=== PATIENT | male | born 1950 | race Caucasian/White ===

== ENCOUNTER 2020-11-28 09:56 | Emergency (ER) | payer OTHER, SELFPAY ==
[2020-11-28] VITALS (11 sets, daily range): BP systolic 112–147; BP diastolic 65–76; PULSE 46–54; RESP 14–18; TEMP 36.6; O2SAT 91–98; BMI 27.6
--- NOTE | 2020-11-28 | DI.MRI.S_ITS ---
PROCEDURE: MR ANGIO HEAD WO CON INDICATIONS: CVA, DIZZY TECHNIQUE: Noncontrast axial 3-D [id number] MR angiogram, with 3-dimensional maximum intensity projection (MIP) reformats of the internal carotid arteries and posterior circulation then performed. COMPARISON: [facility], , MR HEAD/BRAIN WO CON, 11/28/2020, 13:32. FINDINGS: Image quality: Excellent. Anterior circulation: Intracranial internal carotid arteries demonstrate normal size and intraluminal flow signal. The flow within the paired anterior cerebral arteries is normal and symmetric. The flow within the middle cerebral arteries is normal and symmetric. The anterior communicating artery is seen. No stenoses, occlusions, or aneurysms. Posterior circulation: Visualized portions of the vertebral arteries demonstrate normal caliber, and join to form a normal appearing basilar artery. The flow within the posterior cerebral arteries is normal and symmetric. No stenoses, occlusions, or aneurysms. IMPRESSION: No significant intracranial arterial abnormality is seen. Dictated by: Tacho Valencia M.D. on 11/28/2020 at 13:16 Approved by: Tacho Valencia M.D. on 11/28/2020 at 13:17
--- NOTE | 2020-11-28 10:09 | DI.RAD.S_ITS ---
PROCEDURE: XR CHEST 1V INDICATIONS: chest pain TECHNIQUE: One view of the chest was acquired. COMPARISON: None. FINDINGS: Surgical changes and devices: None. Lungs and pleura: An incomplete inspiratory result is noted, causing a crowded appearance to the lung markings. No focal infiltrates are seen. No pneumothorax or significant pleural effusions are seen. Mediastinum: Mediastinal contours appear normal. Heart size is normal. Bones and chest wall: No suspicious bony lesions. Age-appropriate bony degenerative changes are seen. Overlying soft tissues appear unremarkable. IMPRESSION: Portable chest within normal limits for age. Dictated by: Tacho Valencia M.D. on 11/28/2020 at 9:30 Approved by: Tacho Valencia M.D. on 11/28/2020 at 9:31
[2020-11-28 10:22] LABS: Add Manual Diff / Slide Review NO; Basophils Absolute Auto 0 /uL (0-100); Basophils Percent Auto 0.5 % (0-2); Eosinophils Absolute Auto 200 /uL (0-450); Eosinophils Percent Auto 3.7 % (2-4); Hematocrit 46.2 % (41-53); Hemoglobin 15.5 g/dL (13.5-17.5); Lymphocytes Absolute Auto 1700 /uL (1100-4500); Lymphocytes Percent Auto 35.7 % (25-40); Mean Corpuscular HGB Conc 33.5 % (30-36); Mean Corpuscular Hemoglobin 31.2 PG (26-34); Monocytes Absolute Auto 600 /uL (0-900); Monocytes Percent Auto 12.7 % (3-14); Neutrophils Absolute Auto 2200 /uL (1500-7000); Neutrophils Percent Auto 47.4 % (50-75); Platelet Count 190 X10^3/uL (150-400); Red Blood Cell Count 4.96 X10^6/uL (4.5-5.9); Red Cell Distribution Width 13.6 % (11.6-14.8); White Blood Cell Count 4.8 X10^3/uL (4.5-11.0)
[2020-11-28 10:37] LABS: Alanine Aminotransferase 32 IU/L (<50); Albumin 4.4 g/dL (3.5-5.0); Albumin Globulin Ratio 1.5 (1.0-2.8); Alkaline Phosphatase 55 U/L (38-126); Aspartate Aminotransferase 37 IU/L (17-59); BUN Creatinine Ratio 20.4 (6-22); Bilirubin Total 1.6 mg/dL (0.2-1.3); Blood Urea Nitrogen 21 mg/dL (9-20); Calcium 9.3 mg/dL (8.4-10.2); Carbon Dioxide 26 mmol/L (22-32); Chloride 104 mmol/L (98-107); Creatine Kinase 116 U/L (55-170); Estimated Glomerular Filt Rate > 60.0 mL/min (>60); Glucose 109 mg/dL (80-110); HEMOLYSIS < 15 (0-50); Lipase 48 U/L (23-300); Potassium 4.3 mmol/L (3.4-5.1); Sodium 139 mmol/L (137-145); Total Protein 7.4 g/dL (6.3-8.2)
[2020-11-28 10:49] LABS: Troponin I < 0.012 ng/mL (0.01-0.034)
[2020-11-28 10:53] LABS: CKMB % Relative Index 1.9 % (1.5-5.0); Creatine Kinase MB 2.21 ng/mL (<2.37)
--- NOTE | 2020-11-28 12:12 | ED.GENADULT ---
HPI - General Adult General Chief complaint: Dizziness Stated complaint: Vertigo Time Seen by Provider: 11/28/20 12:09 Source: patient Mode of arrival: Ambulatory Limitations: no limitations History of Present Illness HPI narrative: 69-year-old gentleman with a history of mild hyperlipidemia and BPH who has been having increasing episodes of vertigo over the last 3 days. No fevers, cough, chills, palpitations, chest pain, abdominal pain. He has had some mild nausea but no vomiting, no hematuria dysuria or diarrhea. Does note that symptoms seem to be worse from going from a sitting to a standing position but head positions specifically does not seem to cause any problems. He notes that it is worst when he 1st awakens in the morning seems to improve over the course of the day. He complains of no headaches, no visual disturbances or other visual changes. Related Data Allergies Allergy/AdvReac Type Severity Reaction Status Date / Time medication for skin CA Allergy Uncoded 11/28/20 10:10 Review of Systems Review of Systems Narrative: Remainder of complete review of systems is otherwise unremarkable except for that included in the HPI. Patient History Medical History (Updated 11/28/20 @ 15:32 by Carrie Lassiter MD) BPH (benign prostatic hyperplasia) Hyperlipidemia Social History Smoking Status: Unknown if ever smoked Smoking Status: Unknown if ever smoked alcohol intake frequency: 0-2 drinks per day Substance Use Type: does not use Exam Narrative Exam Narrative: General: Healthy appearing, in no acute distress. Able to give a complete and coherent history. Well-nourished well-developed HEENT: Moist mucous membranes, normal sclera with reactive pupils, Neck: No JVD, supple Respiratory: Lungs are clear to auscultation, no wheezing no rales no rhonchi. Full and symmetrical air movement Cardiac: Regular rate and rhythm no murmurs no bruits Abdomen: Soft, nontender, good bowel tones, no flank pain Skin: Warm and dry, no rashes Neurologic: Grossly neurologically intact with no obvious asymmetries or abnormalities. He has some mild swaying on Romberg testing and needs to recur act slightly to do heel to toe and slightly less stable standing on his left leg unsupported than his right leg unsupported. NIH score is 0 Extremities: No trauma, well perfused Psych: Cooperative, appropriate insight and affect Initial Vital Signs Initial Vital Signs: Vital Signs Temperature 97.9 F 11/28/20 10:05 Pulse Rate 54 L 11/28/20 10:05 Respiratory Rate 14 11/28/20 10:05 Blood Pressure 141/76 H 11/28/20 10:05 Pulse Oximetry 98 11/28/20 10:05 Course Orders Ordered: ED Orders 11/28/20 10:09 XR chest 1V Stat EKG-12 Lead Stat 11/28/20 10:10 Complete Blood Count AUTO DIFF Stat Comprehensive Metabolic Panel Stat Lipase Stat Troponin & CK Cardiac Panel Stat 11/28/20 13:36 MR head/brain wo con Stat Vital Signs Vital signs: Vital Signs - 8 hr 11/28/20 10:05 11/28/20 10:30 11/28/20 11:00 Temperature 97.9 F Pulse Rate 54 L 50 L 49 L Respiratory Rate 14 16 Blood Pressure 141/76 H 121/66 112/67 Pulse Oximetry 98 95 95 11/28/20 11:30 11/28/20 12:00 11/28/20 12:30 Temperature Pulse Rate 48 L 46 L 49 L Respiratory Rate 14 16 18 Blood Pressure 113/71 120/72 121/65 Pulse Oximetry 97 97 95 11/28/20 13:00 11/28/20 14:02 11/28/20 14:05 Temperature Pulse Rate 48 L 52 L Respiratory Rate 16 17 Blood Pressure 147/67 H Pulse Oximetry 97 91 97 11/28/20 14:30 11/28/20 15:00 Temperature Pulse Rate 52 L 54 L Respiratory Rate Blood Pressure 122/72 133/70 Pulse Oximetry 96 95 Medical Decision Making Lab Data Result diagrams: 11/28/20 10:10 11/28/20 10:10 Labs: Lab Results 11/28/20 11/28/20 Range/Units 10:10 10:10 WBC 4.8 (4.5-11.0) X10^3/uL RBC 4.96 (4.5-5.9) X10^6/uL Hgb 15.5 (13.5-17.5) g/dL Hct 46.2 (41-53) % MCV 93.0 (80-100) fL MCH 31.2 (26-34) PG MCHC 33.5 (30-36) % RDW 13.6 (11.6-14.8) % Plt Count 190 (150-400) X10^3/uL Neut % (Auto) 47.4 L (50-75) % Lymph % (Auto) 35.7 (25-40) % [place] % (Auto) 12.7 (3-14) % Eos % (Auto) 3.7 (2-4) % Baso % (Auto) 0.5 (0-2) % Neut # (Auto) 2200 (1368-3298) /uL Lymph # (Auto) 1700 (3560-3159) /uL [place] # (Auto) 600 (0-900) /uL Eos # (Auto) 200 (0-450) /uL Baso # (Auto) 0 (0-100) /uL Sodium 139 (137-145) mmol/L Potassium 4.3 (3.4-5.1) mmol/L Chloride 104 (98-107) mmol/L Carbon Dioxide 26 (22-32) mmol/L BUN 21 H (9-20) mg/dL Creatinine 1.03 (0.66-1.25) mg/dL Estimated GFR > 60.0 (>60) mL/min BUN/Creatinine Ratio 20.4 (6-22) Glucose 109 (80-110) mg/dL Calcium 9.3 (8.4-10.2) mg/dL Total Bilirubin 1.6 H (0.2-1.3) mg/dL AST 37 (17-59) IU/L ALT 32 (<50) IU/L Alkaline Phosphatase 55 (38-126) U/L Total Creatine Kinase 116 (55-170) U/L CK-MB (CK-2) 2.21 (<2.37) ng/mL CK-MB (CK-2) Rel Index 1.9 (1.5-5.0) % Troponin I < 0.012 (0.01-0.034) ng/mL Total Protein 7.4 (6.3-8.2) g/dL Albumin 4.4 (3.5-5.0) g/dL Globulin 3.0 (1.7-4.1) g/dL Albumin/Globulin Ratio 1.5 (1.0-2.8) Lipase 48 (23-300) U/L Imaging Data Chest x-ray: Radiologist's Impression: FINDINGS: Surgical changes and devices: None. Lungs and pleura: An incomplete inspiratory result is noted, causing a crowded appearance to the lung markings. No focal infiltrates are seen. No pneumothorax or significant pleural effusions are seen. Mediastinum: Mediastinal contours appear normal. Heart size is normal. Bones and chest wall: No suspicious bony lesions. Age-appropriate bony degenerative changes are seen. Overlying soft tissues appear unremarkable. IMPRESSION: Portable chest within normal limits for age. Dictated by: Tacho Valencia M.D. on 11/28/2020 at 9:30 MRI brain: Radiologist's Impression: FINDINGS: Image quality: Excellent. CSF spaces: Ventricles appear symmetric in size and shape. Basal cisterns are patent. No extra-axial fluid collections. Brain: In this patient with this given history, scrutiny is given to the cerebellum. No findings of cerebellar infarction can be seen. Diffusion-weighted images show no acute ischemic insults within the cerebellum or elsewhere. In this patient with this given history, scrutiny is given to cerebellopontine angle cisterns and to the internal auditory canals. To the limits of this standard protocol study, no masses can be seen within these regions. No intracranial bleeds or mass effects. There is cerebral volume loss for age. There are periventricular and deep white matter chronic small vessel ischemic changes. Brainstem appears normal. No chronic ischemic insults. Normal intravascular flow voids are present. Skull and face: Calvarial bone marrow is normal in signal. Orbits are normal. Sinuses: Sinuses and mastoids are clear. IMPRESSION: No findings of acute or subacute infarction can be seen, including within the cerebellum. No imaging explanation is found for this patient's presenting symptoms. Dictated by: Tacho Valencia M.D. on 11/28/2020 at 13:14 ECG Data Interpretation: Sinus rhythm at a rate of 49 Normal intervals, normal axis, no acute ischemic changes MDM Narrative Medical decision making narrative: 69-year-old gentleman with 3 days of intermittent symptoms of ataxia and vertigo. Lab work is unremarkable. No evidence of benign positional vertigo or significant orthostatic symptoms. MRI of his brain does not suggest an acute posterior circulation stroke. Suspect viral syndrome as a cause of the 3 days of symptoms. Reassurance is given and patient is safe for home discharge. Of note, his bilirubin was elevated at 1.6 with no other liver abnormalities appreciated. He does have access to records from [facility] has majority of his primary care and bilirubin levels have fluctuated slightly with a level as high as 1.5 a number of years ago and most the time returning back to normal limits. This is reviewed with both he and his the recommended rechecking the level in a number of months to make sure it is returning to normal. Discharge Plan Departure Patient Disposition: Home Clinical Impression: Vertigo, Elevated bilirubin Instructions: DI for Vertigo Activity Restrictions/Additional Instructions: Thank you for coming in today Your exam did suggest vertigo with a question of abnormalities in your cerebellum(the back of your brain that is responsible for stability and balance). Your lab work was very reassuring. The MRI of your brain to specifically look at your cerebellum did not suggest any abnormalities, specifically you did not have stroke. At this point, the most likely explanation is some type of mild viral syndrome that is causing her symptoms. I would expect that the symptoms will get better over the next couple of days. I would encourage you to drink plenty of fluids to make sure that your urine is light yellow in color. If you have new or worsening symptoms at her pointing us in a different direction, please feel free to return to the ER and I am happy to re-evaluate
--- NOTE | 2020-11-28 13:36 | DI.MRI.S_ITS ---
PROCEDURE: MR HEAD/BRAIN WO CON INDICATIONS: severe vertigo, ? cerebellar infarct TECHNIQUE: Non-contrast axial T1 spin echo, axial T2 fast spin echo, sagittal and axial FLAIR, coronal T2 fast spin echo, axial gradient echo, axial diffusion and ADC through the brain. COMPARISON: [facility], MR, MR ANGIO HEAD WO CON, 11/28/2020, 13:32. FINDINGS: Image quality: Excellent. CSF spaces: Ventricles appear symmetric in size and shape. Basal cisterns are patent. No extra-axial fluid collections. Brain: In this patient with this given history, scrutiny is given to the cerebellum. No findings of cerebellar infarction can be seen. Diffusion-weighted images show no acute ischemic insults within the cerebellum or elsewhere. In this patient with this given history, scrutiny is given to cerebellopontine angle cisterns and to the internal auditory canals. To the limits of this standard protocol study, no masses can be seen within these regions. No intracranial bleeds or mass effects. There is cerebral volume loss for age. There are periventricular and deep white matter chronic small vessel ischemic changes. Brainstem appears normal. No chronic ischemic insults. Normal intravascular flow voids are present. Skull and face: Calvarial bone marrow is normal in signal. Orbits are normal. Sinuses: Sinuses and mastoids are clear. IMPRESSION: No findings of acute or subacute infarction can be seen, including within the cerebellum. No imaging explanation is found for this patient's presenting symptoms. Dictated by: Tacho Valencia M.D. on 11/28/2020 at 13:14 Approved by: Tacho Valencia M.D. on 11/28/2020 at 13:16
== END 2020-11-28 15:31 | disposition home or self-care (01) ==
PROVIDERS: Emergency Provider Emergency Medicine
DX: R42 Dizziness and giddiness (principal); R17 Unspecified jaundice; R11.0 Nausea; R07.9 Chest pain, unspecified
CPT/HCPCS: 36415; 70544; 70551; 71045; 80053; 82550; 82553; 83690; 84484; 85025; 93005; 93010; 99284

== ENCOUNTER 2021-03-31 10:36 | Observation (INO) | payer OTHER, SELFPAY ==
[2021-03-31] VITALS (11 sets, daily range): BP systolic 122–165; BP diastolic 66–87; PULSE 45–58; RESP 14–37; TEMP 36.1–36.8; O2SAT 96–99; BMI 27.3
--- NOTE | 2021-03-31 11:15 | DI.RAD.S_ITS ---
PROCEDURE: XR CHEST 1V INDICATIONS: chest pain TECHNIQUE: One view of the chest was acquired. COMPARISON: [facility], CR, XR CHEST 1V, 11/28/2020, 10:21. FINDINGS: Surgical changes and devices: None. Lungs and pleura: Multifocal bilateral opacities, for example both lung bases and right upper lobe. No pleural effusion or pneumothorax. Mediastinum: Mild cardiomegaly. No central venous congestion. Bones and chest wall: No suspicious bony lesions. Overlying soft tissues appear unremarkable. IMPRESSION: 1. Multifocal bilateral alveolar opacities most suggestive of infection or inflammation, less likely pulmonary edema. 2. Mild cardiomegaly. Dictated by: Sushma Klein M.D. on 03/31/2021 at 11:32 Approved by: Sushma Klein M.D. on 03/31/2021 at 11:33
[2021-03-31] MEDS: ASPIRIN 81 MG CHEW TAB 324 MG PO (14:06)
[2021-03-31 14:38] LABS: Add Manual Diff / Slide Review NO; Basophils Absolute Auto 0 /uL (0-100); Basophils Percent Auto 0.5 % (0-2); Eosinophils Absolute Auto 200 /uL (0-450); Eosinophils Percent Auto 4.1 % (2-4); Hematocrit 41.3 % (41-53); Hemoglobin 14.3 g/dL (13.5-17.5); Lymphocytes Absolute Auto 1100 /uL (1100-4500); Lymphocytes Percent Auto 26.2 % (25-40); Mean Corpuscular HGB Conc 34.6 % (30-36); Mean Corpuscular Hemoglobin 31.6 PG (26-34); Mean Corpuscular Volume 91.3 fL (80-100); Monocytes Absolute Auto 400 /uL (0-900); Monocytes Percent Auto 9.2 % (3-14); Neutrophils Absolute Auto 2600 /uL (1500-7000); Platelet Count 179 X10^3/uL (150-400); Red Blood Cell Count 4.53 X10^6/uL (4.5-5.9); Red Cell Distribution Width 13.6 % (11.6-14.8); White Blood Cell Count 4.3 X10^3/uL (4.5-11.0)
[2021-03-31 14:52] LABS: Alanine Aminotransferase 27 IU/L (<50); Albumin 4.1 g/dL (3.5-5.0); Albumin Globulin Ratio 1.5 (1.0-2.8); Alkaline Phosphatase 65 U/L (38-126); Aspartate Aminotransferase 33 IU/L (17-59); BUN Creatinine Ratio 16.3 (6-22); Blood Urea Nitrogen 15 mg/dL (9-20); Calcium 9.3 mg/dL (8.4-10.2); Carbon Dioxide 29 mmol/L (22-32); Chloride 106 mmol/L (98-107); Creatine Kinase 84 U/L (55-170); Estimated Glomerular Filt Rate > 60.0 mL/min (>60); Globulin 2.8 g/dL (1.7-4.1); Glucose 130 mg/dL (80-110); HEMOLYSIS < 15 (0-50); Lipase 51 U/L (23-300); Magnesium 1.9 mg/dL (1.6-2.3); Potassium 3.8 mmol/L (3.4-5.1); Sodium 139 mmol/L (137-145); Total Protein 6.9 g/dL (6.3-8.2)
[2021-03-31 15:03] LABS: Troponin I < 0.012 ng/mL (0.01-0.034)
[2021-03-31 15:14] LABS: COVID19 -Nasal RAPID Negative (Negative)
--- NOTE | 2021-03-31 15:30 | ED_ITS ---
HPI - Chest Pain General Chief Complaint: Chest Pain Stated Complaint: Chest pain over weekend- referred by Time Seen by Provider: 03/31/21 15:12 Source: patient Mode of arrival: Ambulatory Limitations: no limitations History of Present Illness HPI narrative: Patient is a 70-year-old male history of hyperlipidemia, vertigo and BPH who presents today at the request of his primary care provider for further cardiac workup. He is a very active geo rides [employer], goes on hikes and has not had any issue until this weekend. Over the last 2-3 days he has gone on leisurely walks with his to walk the dogs and is had to stop each time. He says he feels chest pressure in his chest and he is short of breath. Every time he stops moving his symptoms resolved completely. He has not tried to exercise s ulises his symptoms started. He currently is chest pain free in appears comfortable. He denies any recent travel. Related Data Home Medications Medication Instructions Recorded Confirmed atorvastatin 40 mg tablet 40 mg PO DAILY 12/02/20 03/31/21 tamsulosin 0.4 mg capsule (Flomax) 0.4 mg PO DAILY 12/02/20 03/31/21 Allergies Allergy/AdvReac Type Severity Reaction Status Date / Time medication for skin CA Allergy Uncoded 12/02/20 15:20 Review of Systems Review of Systems Narrative: GENERAL: Denies chills, fatigue, malaise, fever, sweats, travel HEENT: Denies sinus pain, ear pain, sore throat, difficulty swallowing, neck pain RESPIRATORY: Denies dyspnea, cough, wheezing, hemoptysis, sputum. CARDIOVASCULAR: See HPI GASTROINTESTINAL: Denies nausea, vomiting, abdominal pain, diarrhea, constipati on, melena. : Denies dysuria, frequency, incontinence, hematuria, urinary retention, flank pain. MUSCULOSKELETAL: Denies weakness, joint pain, or bony pain SKIN: No rash, no erythema, no pruritus NEUROLOGIC: Denies weakness, dizziness, headache, numbness, change in speech, confusion PSYCHIATRIC: No concerning psychosocial issues. 12 point review of systems is negative except for those stated above and HPI Patient History Medical History BPH (benign prostatic hyperplasia) Hyperlipidemia Social History household members: spouse Smoking Status: Never smoker alcohol intake: current Smoking Status: Never smoker alcohol intake frequency: 0-2 drinks per day Substance Use Type: marijuana Exam Initial Vital Signs Initial Vital Signs: Vital Signs Temperature 96.9 F L 03/31/21 11:12 Pulse Rate 50 L 03/31/21 11:12 Respiratory Rate 14 03/31/21 11:12 Blood Pressure 165/79 H 03/31/21 11:12 Pulse Oximetry 98 03/31/21 11:12 GENERAL: Well-appearing, well-nourished and in no acute distress. HEENT: Head atraumatic,EOMI, pupils reactive, face symmetric, moist mucous membranes CARDIOVASCULAR: Regular rate and rhythm without murmurs, rubs or gallops. RESPIRATORY: Breath sounds equal bilaterally, no wheezes rales or rhonchi. ABDOMEN: Soft, nontender. Normoactive bowel sounds all 4 quadrants. No guarding or rebound. EXTREMITIES: Normal range of motion, no clubbing or edema. Neurovascularly intact NEUROLOGICAL: Alert and oriented x4.Normal gait and speech. SKIN: Warm, dry, no laceration, no petechiae, no rashes or lesions. Scores HEART Score Heart Score history: Highly Suspicious Heart Score EKG: Normal Heart Score Age: > or = 65 years old Heart Score risk factors: 1-2 risk factors Heart Score troponin: < or = to normal limit Heart Score Total: 5 Course Orders Ordered: ED Orders 03/31/21 11:15 XR chest 1V Stat EKG-12 Lead Stat 03/31/21 14:20 D Dimer Stat 03/31/21 14:22 COVID19 -Nasal swab/Pre-Proc Stat Complete Blood Count AUTO DIFF Stat Comprehensive Metabolic Panel Stat Lipase Stat Magnesium Stat Troponin & CK Cardiac Panel Stat Discontinued Medications Aspirin (Aspirin 81 Mg Chew Tab) 324 mg PO NOW ONE Stop: 03/31/21 13:48 Last Admin: 03/31/21 14:06 Dose: 324 mg Documented by: TELMA Vital Signs Vital signs: Vital Signs - 8 hr 03/31/21 14:09 03/31/21 14:10 03/31/21 14:30 Pulse Rate 48 L 48 L 58 L Respiratory Rate 35 H 37 H 20 Blood Pressure 130/67 123/79 Pulse Oximetry 98 98 98 03/31/21 15:00 03/31/21 15:30 03/31/21 16:00 Pulse Rate 45 L 47 L Respiratory Rate 32 H 24 Blood Pressure 145/78 H 143/84 H 154/86 H Pulse Oximetry 99 99 03/31/21 16:30 03/31/21 17:00 Pulse Rate 47 L Respiratory Rate 21 Blood Pressure 154/87 H Pulse Oximetry 97 MDM - Chest Pain Lab Data Result diagrams: 03/31/21 14:22 03/31/21 14:22 Labs: Lab Results 03/31/21 03/31/21 03/31/21 Range/Units 14:20 14:22 14:22 WBC 4.3 L (4.5-11.0) X10^3/uL RBC 4.53 (4.5-5.9) X10^6/uL Hgb 14.3 (13.5-17.5) g/dL Hct 41.3 (41-53) % MCV 91.3 (80-100) fL MCH 31.6 (26-34) PG MCHC 34.6 (30-36) % RDW 13.6 (11.6-14.8) % Plt Count 179 (150-400) X10^3/uL Neut % (Auto) 60.0 (50-75) % Lymph % (Auto) 26.2 (25-40) % [place] % (Auto) 9.2 (3-14) % Eos % (Auto) 4.1 H (2-4) % Baso % (Auto) 0.5 (0-2) % Neut # (Auto) 2600 (9454-5681) /uL Lymph # (Auto) 1100 (0981-7577) /uL [place] # (Auto) 400 (0-900) /uL Eos # (Auto) 200 (0-450) /uL Baso # (Auto) 0 (0-100) /uL D-Dimer 284 H (<230) ng/mL Sodium 139 (137-145) mmol/L Potassium 3.8 (3.4-5.1) mmol/L Chloride 106 (98-107) mmol/L Carbon Dioxide 29 (22-32) mmol/L BUN 15 (9-20) mg/dL Creatinine 0.92 (0.66-1.25) mg/dL Estimated GFR > 60.0 (>60) mL/min BUN/Creatinine Ratio 16.3 (6-22) Glucose 130 H (80-110) mg/dL Calcium 9.3 (8.4-10.2) mg/dL Magnesium 1.9 (1.6-2.3) mg/dL Total Bilirubin 1.0 (0.2-1.3) mg/dL AST 33 (17-59) IU/L ALT 27 (<50) IU/L Alkaline Phosphatase 65 (38-126) U/L Total Creatine Kinase 84 (55-170) U/L CK-MB (CK-2) TNP CK-MB (CK-2) Rel Index TNP Troponin I < 0.012 (0.01-0.034) ng/mL Total Protein 6.9 (6.3-8.2) g/dL Albumin 4.1 (3.5-5.0) g/dL Globulin 2.8 (1.7-4.1) g/dL Albumin/Globulin Ratio 1.5 (1.0-2.8) Lipase 51 (23-300) U/L SARS-CoV-2 (PCR) (Negative) 03/31/21 Range/Units 14:22 WBC (4.5-11.0) X10^3/uL RBC (4.5-5.9) X10^6/uL Hgb (13.5-17.5) g/dL Hct (41-53) % MCV (80-100) fL MCH (26-34) PG MCHC (30-36) % RDW (11.6-14.8) % Plt Count (150-400) X10^3/uL Neut % (Auto) (50-75) % Lymph % (Auto) (25-40) % [place] % (Auto) (3-14) % Eos % (Auto) (2-4) % Baso % (Auto) (0-2) % Neut # (Auto) (9456-1599) /uL Lymph # (Auto) (6023-5055) /uL [place] # (Auto) (0-900) /uL Eos # (Auto) (0-450) /uL Baso # (Auto) (0-100) /uL D-Dimer (<230) ng/mL Sodium (137-145) mmol/L Potassium (3.4-5.1) mmol/L Chloride (98-107) mmol/L Carbon Dioxide (22-32) mmol/L BUN (9-20) mg/dL Creatinine (0.66-1.25) mg/dL Estimated GFR (>60) mL/min BUN/Creatinine Ratio (6-22) Glucose (80-110) mg/dL Calcium (8.4-10.2) mg/dL Magnesium (1.6-2.3) mg/dL Total Bilirubin (0.2-1.3) mg/dL AST (17-59) IU/L ALT (<50) IU/L Alkaline Phosphatase (38-126) U/L Total Creatine Kinase (55-170) U/L CK-MB (CK-2) CK-MB (CK-2) Rel Index Troponin I (0.01-0.034) ng/mL Total Protein (6.3-8.2) g/dL Albumin (3.5-5.0) g/dL Globulin (1.7-4.1) g/dL Albumin/Globulin Ratio (1.0-2.8) Lipase (23-300) U/L SARS-CoV-2 (PCR) Negative (Negative) Imaging Data Chest x-ray: Radiologist's Impression: PROCEDURE:? XR CHEST 1V ? INDICATIONS:? chest pain ? TECHNIQUE:? One view of the chest was acquired.? ? COMPARISON:? [facility], , XR CHEST 1V, 11/28/2020, 10:21. ? FINDINGS:? ? Surgical changes and devices:? None.? ? Lungs and pleura:? Multifocal bilateral opacities, for example both lung bases and right upper lobe.? No pleural effusion or pneumothorax. ? Mediastinum:? Mild cardiomegaly.? No central venous congestion. ? Bones and chest wall:? No suspicious bony lesions.? Overlying soft tissues appear unremarkable.? ? IMPRESSION:? ? 1. Multifocal bilateral alveolar opacities most suggestive of infection or inflammation, less likely pulmonary edema. ? 2. Mild cardiomegaly.? ? ? Dictated by: Sushma Klein M.D. on 03/31/2021 at 11:32 ? ? ECG Data Interpretation: Normal sinus rhythm rate 47 IN interval 154 QRS 92 QTC 387 T-wave inversion noted in lead 3 and AVF NEW from priors, no ST elevation or depression MDM Narrative Medical decision making narrative: Patient is a relatively active 70-year-old male who has concerning symptoms for cardiac ischemia and coronary artery disease. At this time he is chest pain- free troponin is negative EKG does show some new T-wave inversions. Dr. figueroa Accepts patient. Discharge Plan Departure Patient Disposition: Admitted as Observation Clinical Impression: Chest pain Admit Date/Time: 03/31/21 17:42 Admit Provider: Huy Figueroa
[2021-03-31 16:03] LABS: D Dimer 284 ng/mL (<230)
[2021-03-31 20:40] LABS: Hemoglobin A1C% w Est Avg Glu 5.5 % (4.0-6.0)
[2021-03-31 21:29] LABS: Troponin I < 0.012 ng/mL (0.01-0.034)
--- NOTE | 2021-03-31 21:54 | PM.HP.1 ---
History of Present Illness History of Present Illness Date Patient Seen: 03/31/21 Time Patient Seen: 20:45 Chief complaint: Chest pain over weekend- referred by Narrative: Alvin Spears is a 70-year-old non-smoking male with only hyperlipidemia and BPH presented with a 1 day history of chest pain at rest. He states that the chest pain started on Wednesday of last week and then reoccurred on Wednesday. He states that it was not pressure but more pain that radiated down into his left arm. He does state a family history of his father having of myocardial infarction. He did state that he also became short of breath and would breathe hard in hopes that his pain would go away but it did not subside. The patient states that he is very active, bicycles, hikes, and prior to the pandemic use to ski as well. He denies diaphoresis, headache, nausea vomiting, dysuria, diarrhea or constipation. He also denies any peripheral upper lower extremity neuropathy. He contacted his PCP's office and they advised him to present to the emergency department. Chest x-ray ordered in the emergency department indicated bibasilar opacities concerning for either infection or inflammation. He was administered ASA 325 mg X 1 in the ED. Patient is afebrile, blood pressure 122/66 heart rate 57, respiratory rate 18, he weighs 93.5 kg with a BMI of 27.3. His WBC is 4.3 he had a mildly elevated D-dimer of 284 however that is below the threshold for age, glucose was 130 with a hemoglobin A1c of 5.5 so he is not diabetic, troponins x3 are negative, procalcitonin is just been ordered and is pending. Patient History Medical History BPH (benign prostatic hyperplasia) Hyperlipidemia Surgical History (Updated 03/31/21 @ 23:21 by KAREN Alaniz) S/P ACL repair Family & Social History Family History (Updated 03/31/21 @ 23:22 by KAREN Alaniz) Father Myocardial infarction Mother Status cardiac pacemaker Social History: household members spouse Prior Living Arrangements House Safety & Behavioral: Feels Safe in Current Yes Environment Been Physically Hurt or No Threatened By a Person Suicidal Ideation Description None Suicide Plan Description No Plan Tobacco & Substance use: Smoking Status Never smoker alcohol intake current alcohol intake frequency 0-2 drinks per day Substance Use Type marijuana Meds Home Medications and Allergies Home Medications Medication Instructions Recorded Confirmed Type atorvastatin 40 mg tablet 40 mg PO DAILY 12/02/20 03/31/21 History tamsulosin 0.4 mg capsule (Flomax) 0.4 mg PO DAILY 12/02/20 03/31/21 History Allergies Allergy/AdvReac Type Severity Reaction Status Date / Time medication for skin CA Allergy Uncoded 12/02/20 15:20 Review of Systems Review of Systems ROS: Yes All systems reviewed with the patient and are negative except as otherwise documented Exam Vital Signs (past 8 hours): - 03/31/21 14:09 03/31/21 14:10 03/31/21 14:30 Temperature Pulse Rate 48 L 48 L 58 L Respiratory Rate 35 H 37 H 20 Blood Pressure 130/67 123/79 Pulse Oximetry 98 98 98 03/31/21 15:00 03/31/21 15:30 03/31/21 16:00 Temperature Pulse Rate 45 L 47 L Respiratory Rate 32 H 24 Blood Pressure 145/78 H 143/84 H 154/86 H Pulse Oximetry 99 99 03/31/21 16:30 03/31/21 17:00 03/31/21 18:43 Temperature 98.1 F Pulse Rate 47 L 46 L Respiratory Rate 21 18 Blood Pressure 154/87 H 140/76 Pulse Oximetry 97 99 03/31/21 19:40 Temperature 98.2 F Pulse Rate 57 L Respiratory Rate 18 Blood Pressure 122/66 Pulse Oximetry 96 Oxygen Delivery Method Room Air Oxygen Flow Rate 0 Narrative Exam Narrative: Gen: Alert, oriented, well-developed 70 y.o. male, NAD HEENT: normocephalic, atraumatic, conjunctiva clear, sclera non-icteric, oral mucosa pink and moist Neck: supple, full ROM, no JVD, trachea is midline Resp: Lungs CTA, non-labored breathing CV: RRR, no murmur or rubs Abd: soft, non-tender, normoactive BTs Skin: Back is covered in tatoos, no lesions or rashes, dry and intact Neuro: Alert and oriented X 4 w/no focal deficits. Speech clear and coherent. Extremities: moves all 4 extremities, is ambulatory, negative Anish?s sign Psyche: pleasant, normal mood and affect. Objective Labs Result Diagrams: 03/31/21 14:22 03/31/21 14:22 Labs: Laboratory Results - last 24 hr 03/31/21 03/31/21 03/31/21 14:20 14:22 14:22 WBC 4.3 L RBC 4.53 Hgb 14.3 Hct 41.3 MCV 91.3 MCH 31.6 MCHC 34.6 RDW 13.6 Plt Count 179 Neut % (Auto) 60.0 Lymph % (Auto) 26.2 [place] % (Auto) 9.2 Eos % (Auto) 4.1 H Baso % (Auto) 0.5 Neut # (Auto) 2600 Lymph # (Auto) 1100 [place] # (Auto) 400 Eos # (Auto) 200 Baso # (Auto) 0 D-Dimer 284 H Sodium 139 Potassium 3.8 Chloride 106 Carbon Dioxide 29 BUN 15 Creatinine 0.92 Estimated GFR > 60.0 BUN/Creatinine Ratio 16.3 Glucose 130 H Hemoglobin A1c Calcium 9.3 Magnesium 1.9 Total Bilirubin 1.0 AST 33 ALT 27 Alkaline Phosphatase 65 Total Creatine Kinase 84 CK-MB (CK-2) TNP CK-MB (CK-2) Rel Index TNP Troponin I < 0.012 Total Protein 6.9 Albumin 4.1 Globulin 2.8 Albumin/Globulin Ratio 1.5 Lipase 51 SARS-CoV-2 (PCR) 03/31/21 03/31/21 03/31/21 14:22 14:22 20:50 WBC RBC Hgb Hct MCV MCH MCHC RDW Plt Count Neut % (Auto) Lymph % (Auto) [place] % (Auto) Eos % (Auto) Baso % (Auto) Neut # (Auto) Lymph # (Auto) [place] # (Auto) Eos # (Auto) Baso # (Auto) D-Dimer Sodium Potassium Chloride Carbon Dioxide BUN Creatinine Estimated GFR BUN/Creatinine Ratio Glucose Hemoglobin A1c 5.5 Calcium Magnesium Total Bilirubin AST ALT Alkaline Phosphatase Total Creatine Kinase CK-MB (CK-2) CK-MB (CK-2) Rel Index Troponin I < 0.012 Total Protein Albumin Globulin Albumin/Globulin Ratio Lipase SARS-CoV-2 (PCR) Negative Assessment & Plan Assessment & Plan narrative: Alvin Spears is placed into observation further evaluation and workup of chest pain Chest pain r/o ACS, acute, present on admission ? Echo in am ? Pharmacological stress test ? Start ASA 81 mg ? Trend troponin X 3 and stop Hypertension ? Start low dose lisinopril Baseline heart rate is too low for a beta jorden HLD ? Lipid panel, pending ? Continue atorvastatin 40 mg po at bedtime Risk stratification ? Fasting lipid panel scheduled for 0500 labs ? A1c 5.5%, not diabetic VTE Prophylaxis: Wells risk score 0Enoxaparin 40 mg subQ once daily X Bilateral SCDs Patient is placed into observation as his stay is not expected to exceed 2 midnights. FEN: IV fluids: saline lock, diet: heart healthy, labs: CBC, C/BMP, liver enzymes, [employer] None Dispo: probable discharge to home Code status: Full code as discussed with the patient who identifies his his surrogate and POA. [X] I have utilized all available immediate resources to obtain, update, or review of the patient's current medications COVID-19 COVID-19 status: Negative Result date/Date tested (Pos, Neg/Pending): 03/31/21 Time Spent With Patient Critical Care time: I spent a total of [] minutes of critical care time on this patient's care today; this time is exclusive of procedural time. Scores Wells' Criteria for PE Clinical signs and symptoms of DVT: No PE is #1 Dx or equally likely: No Heart rate > 100: No Immobilization at least 3 days or surg in previous 4 weeks: No History of PE or DVT: No Hemoptysis: No Malignancy w/Treatment within 6 months or palliative: No Wells' PE Score total: 0 Quality VTE Deep Vein Thrombosis/Pulmonary Embolism Present on Admission: No MIPS - Admit I confirm the patient?s Advance Care Plan is present, Code status is documented, Surrogate decision maker is in patient?s record [If Yes, STOP here]: Yes MIPS - DC The patient has current or prior documentation of left ventricular ejection fraction (LVEF) less than 40%, or moderate or severely depressed left ventricular systolic function.: No
[2021-03-31 23:48] LABS: Procalcitonin 0.05 ng/mL (<0.5)
[2021-04-01 01:02] LABS: Thyroid Stimulating Hormone 2.82 uIU/mL (0.47-4.68)
[2021-04-01 02:15] VITALS: BP 105/62; PULSE 50; RESP 18; TEMP 36.6; O2SAT 96
[2021-04-01 06:33] LABS: Add Manual Diff / Slide Review NO; Basophils Absolute Auto 0 /uL (0-100); Basophils Percent Auto 0.5 % (0-2); Eosinophils Absolute Auto 200 /uL (0-450); Eosinophils Percent Auto 5.2 % (2-4); Hemoglobin 14.9 g/dL (13.5-17.5); Lymphocytes Absolute Auto 1400 /uL (1100-4500); Lymphocytes Percent Auto 33.4 % (25-40); Mean Corpuscular HGB Conc 34.6 % (30-36); Mean Corpuscular Hemoglobin 31.5 PG (26-34); Mean Corpuscular Volume 91.2 fL (80-100); Monocytes Absolute Auto 400 /uL (0-900); Monocytes Percent Auto 9.6 % (3-14); Neutrophils Absolute Auto 2200 /uL (1500-7000); Neutrophils Percent Auto 51.3 % (50-75); Platelet Count 184 X10^3/uL (150-400); Red Blood Cell Count 4.71 X10^6/uL (4.5-5.9); Red Cell Distribution Width 13.7 % (11.6-14.8); White Blood Cell Count 4.3 X10^3/uL (4.5-11.0)
[2021-04-01 06:40] LABS: Alanine Aminotransferase 27 IU/L (<50); Albumin Globulin Ratio 1.7 (1.0-2.8); Alkaline Phosphatase 48 U/L (38-126); Aspartate Aminotransferase 33 IU/L (17-59); BUN Creatinine Ratio 13.2 (6-22); Bilirubin Total 1.4 mg/dL (0.2-1.3); Bilirubin Unconjugated 1.5 mg/dL (0.0-1.1); Blood Urea Nitrogen 12 mg/dL (9-20); Calcium 9.1 mg/dL (8.4-10.2); Carbon Dioxide 31 mmol/L (22-32); Chloride 106 mmol/L (98-107); Cholesterol 153 mg/dL (140-199); Estimated Glomerular Filt Rate > 60.0 mL/min (>60); Globulin 2.3 g/dL (1.7-4.1); Glucose 95 mg/dL (80-110); HDL Cholesterol 50 mg/dL (40-60); HEMOLYSIS < 15 (0-50); LDL Cholesterol Calculated 89 mg/dL (<100); Potassium 3.9 mmol/L (3.4-5.1); Sodium 139 mmol/L (137-145); Total Protein 6.3 g/dL (6.3-8.2); Triglycerides 70 mg/dL (35-150)
--- NOTE | 2021-04-01 07:33 | DI.ECHO.S_ITS ---
:Name: TREY TURNER Study Date: 04/01/2021 Height: 74 in : :[facility] ReadingLocation: Weight: 206 lb : : Gender: Male BSA: 2.2 m2 : :: 1950 Age: 70 yrs BP: 140/76 mmHg: :Reason For Study: CHEST PAIN : :Ordering Physician: PETEY BERNAL, : :[employer] GRINDER Performed By: Malaika Jiménez : :Referring: PETEY BERNAL ARNP : + + Interpretation Summary The left ventricle is normal in size and wall thickness. The ejection fraction is estimated to be 55-60% No obvious wall motion abnormality. The right ventricle is normal in size and function. The right ventricular systolic pressure is estimated to be at least 38 mmHg based on an estimated right atrial pressure of 8 mm Hg. No significant valvular disease. Procedure: A two-dimensional transthoracic echocardiogram with color flow and Doppler was performed. The study quality was technically good. There is no prior echocardiogram noted for this patient. The patient was in sinus bradycardia with heart rates between 45-55 bpm during the exam. Left Ventricle: The left ventricle is normal in size and wall thickness. The ejection fraction is estimated to be 55-60%. There are no obvious focal wall motion abnormalities noted but poor endocardial definition reduces the sensitivity for the detection of such. Diastolic parameters suggest probable normal left ventricular diastolic function and normal filling pressures. Right Ventricle: The right ventricle is normal in size and function. Atria: The left atrium is borderline dilated. Right atrial size is normal. There is no Doppler evidence for an interatrial shunt. Mitral Valve: The mitral valve leaflets appear mildly thickened, but open well. There is trace mitral regurgitation. Aortic Valve: The aortic valve is trileaflet. The aortic valve opens well. There is no aortic valve stenosis. There is trace aortic regurgitation. Tricuspid Valve: The tricuspid valve is normal in structure and function. The right ventricular systolic pressure is estimated to be at least 38 mmHg based on an estimated right atrial pressure of 8 mm Hg. There is mild tricuspid regurgitation. Pulmonic Valve: The pulmonic valve is not well seen, but is grossly normal. There is trace pulmonic regurgitation. Great Vessels: The aortic root is borderline dilated. The dimensions of the ascending aorta are normal. The IVC is dilated (diameter is greater than 2.1 cm) yet it collapses greater than 50% with a sniff. This suggests a right atrial pressure of 8 mm Hg. Pericardium/ Pleura There is no pericardial effusion. There is no pleural effusion. MMode/2D Measurements & Calculations LVIDd: 5.5 cm LVOT diam: 2.2 cm LVIDs: 4.1 cm Ao root diam: 3.9 cm FS: 25.8 % asc Aorta Diam: 3.7 cm IVSd: 0.96 cm Ao Arch Diam (Prox Trans): 3.0 cm LVPWd: 1.0 cm LV coelho. diameter/BSA (cm/m^2): 2.5 LV sys. diameter/BSA (cm/m^2): 1.8 LA A2 area: 26.4 cm2 RA long axis: 6.9 cm LA A4 area: 20.4 cm2 RA area: 23.0 cm2 LA length (vol): 6.2 cm RA vol: 65.6 ml LA vol: 73.4 ml RA : 29.8 ml/m2 LA vol index: 33.4 ml/m2 IVC diam: 2.1 cm RVD1 (basal): 3.8 cm TAPSE: 2.2 cm Doppler Measurements & Calculations Ao V2 max: 145.4 cm/sec LVOT Max Eliseo: 99.9 cm/sec Ao V2 mean: 98.8 cm/sec LV V1 max P.0 mmHg Ao max P.5 mmHg LV V1 VTI: 22.6 cm Ao mean P.5 mmHg ROSARIO(I,D): 2.9 cm2 Ao V2 VTI: 30.5 cm ROSARIO(V,D): 2.7 cm2 sev ratio: 0.74 ROSARIO indexed to BSA (cm^2/m^2): 1.3 MV E max eliseo: 50.5 cm/sec TR max eliseo: 271.7 cm/sec MV A max eliseo: 40.2 cm/sec TR max P.5 mmHg MV E/A: 1.3 PA V2 max: 114.7 cm/sec Med Peak E' Eliseo: 8.0 cm/sec PA V2 mean: 78.1 cm/sec E/E' med: 6.3 PA mean P.7 mmHg Lat Peak E' Eliseo: 13.5 cm/sec PA pr(Accel): 31.0 mmHg E/E' lat: 3.7 E/e' average: 5.0 MV dec time: 0.47 sec SV(LVOT): 87.2 ml Reading Physician:SHANELLE
[2021-04-01 08:52] VITALS: BP 118/71; PULSE 53; RESP 17; TEMP 36.6; O2SAT 97
[2021-04-01 12:00] VITALS: BP 119/64; PULSE 66; RESP 19; TEMP 36.8; O2SAT 97
[2021-04-01] MEDS: ASPIRIN EC 81 MG TABLET PO (12:47)
[2021-04-01] MEDS: ENOXAPARIN 40 MG/0.4 ML SYRINGE SUBCUT (12:53)
--- NOTE | 2021-04-01 13:33 | CM.DANOTE ---
Patient is a 70 yo male who was admitted on 03/31/21 for Chest Pain over the w/e. Pt has [employer] for insurance and his PCP is Alex May. EMR was reviewed. Per MD, pt typically very active and admitted for Chest Pain r/o with Echo and stress test. Per RN, Echo completed but results pending and Stress Test not available today. Per MD, if Echo results are normal than pt can likely d/c home with outpt Stress Test and PCP f/u. SW met bedside with pt and explained role and pt confirms he lives in [place] with his and is active with hiking and biking at baseline and denies any hx of HH or SNF. Pt states he is retired but his works from home and is available for assist if needed. Pt states his vehicle is in the parking lot as he drove himself in today and plans to drive home at d/c if cleared by Echo. Pt does not anticipate any needs at d/c and preference is home today if stable. Plan: SW to follow for Echo results to determine if pt stable for d/c home with spouse assist and any further identified needs. JOSE FRANCISCO Gonzalez Discharge Planning/Care Management CM Discharge Assessment Start: 04/01/21 13:31 Freq: Status: Active Protocol: Document 04/01/21 13:31 BF (Rec: 04/01/21 13:33 BF [id number]) Discharge Planning Assessment Assigned Demand Generator Manager JOSE FRANCISCO Medina DPOA/Assigned Designee Name spouse Trupti Contact Information [phone] Advance Directives? No Advance Directives on File No History Provided By Patient,Medical Record Has Patient been admitted in last 30 No days? Prior Living Arrangements House Household Members spouse Type of transporation used prior to Drives own vehicle admit Independent with ADL's Yes Is patient alert and oriented? Yes Caregiver for Another No Barriers to Discharge No Discharge Plan Home Transportation Arrangement Own vehicle in the parking lot Referrals Initiated None needed Whiteboard Updated in Patient Room with Yes name and ext. # of Demand Generator Manager Review Status In Process Please Provide Date Initial DC 04/01/21 Assessment Was Performed Next Review Type Continued Stay Review
--- NOTE | 2021-04-01 15:09 | P.PN_ITS ---
Subjective Subjective Interval history: The patient denies any recurrence of his CP since admission. He does describe it as typical CP, with radiation to his left arm, worsening with exertion, improving with rest. He denies any recent falls or trauma to the area. Denies any hx of PA's. Pending stress test. Exam Vital Signs (past 8 hours): - 04/01/21 08:52 04/01/21 12:00 Temperature 97.8 F 98.2 F Pulse Rate 53 L 66 Respiratory Rate 17 19 Blood Pressure 118/71 119/64 Pulse Oximetry 97 97 Oxygen Delivery Method Room Air Oxygen Flow Rate 0 Narrative Exam Narrative: Gen: sitting up in bed comfortably upon my entering the room, watching TV and in no apparent, acute distress HEENT: sclera non-icteric, oral mucosa pink and moist Neck: supple, full ROM, no JVD, trachea is midline Resp: lungs clear to auscultation bilaterally CV: RRR, no murmur or rubs, CP non-reproducible with palpation of chest wall Abd: soft, non-tender, non-distended, bowel sounds presents Skin: no grossly abnormal lesions or rashes appreciated Neuro: alert and oriented to person, place and situation Extremities: palpable and equally steady radial and dorsalis pedis pulses bilaterally Psyche: pleasant, normal mood and affect Objective Labs Result Diagrams: 04/01/21 05:27 04/01/21 05:27 Labs: Laboratory Results - last 24 hr 03/31/21 03/31/21 03/31/21 14:20 14:20 14:22 WBC RBC Hgb Hct MCV MCH MCHC RDW Plt Count Neut % (Auto) Lymph % (Auto) [place] % (Auto) Eos % (Auto) Baso % (Auto) Neut # (Auto) Lymph # (Auto) [place] # (Auto) Eos # (Auto) Baso # (Auto) D-Dimer 284 H Sodium Potassium Chloride Carbon Dioxide BUN Creatinine Estimated GFR BUN/Creatinine Ratio Glucose Hemoglobin A1c Calcium Magnesium Total Bilirubin Conjugated Bilirubin Unconjugated Bilirubin AST ALT Alkaline Phosphatase Troponin I Total Protein Albumin Globulin Albumin/Globulin Ratio Triglycerides Cholesterol LDL Cholesterol, Calc HDL Cholesterol Procalcitonin TSH 2.82 SARS-CoV-2 (PCR) Negative 03/31/21 03/31/21 03/31/21 14:22 14:22 20:50 WBC RBC Hgb Hct MCV MCH MCHC RDW Plt Count Neut % (Auto) Lymph % (Auto) [place] % (Auto) Eos % (Auto) Baso % (Auto) Neut # (Auto) Lymph # (Auto) [place] # (Auto) Eos # (Auto) Baso # (Auto) D-Dimer Sodium Potassium Chloride Carbon Dioxide BUN Creatinine Estimated GFR BUN/Creatinine Ratio Glucose Hemoglobin A1c 5.5 Calcium Magnesium Total Bilirubin Conjugated Bilirubin Unconjugated Bilirubin AST ALT Alkaline Phosphatase Troponin I < 0.012 Total Protein Albumin Globulin Albumin/Globulin Ratio Triglycerides Cholesterol LDL Cholesterol, Calc HDL Cholesterol Procalcitonin 0.05 TSH SARS-CoV-2 (PCR) 04/01/21 04/01/21 05:27 05:27 WBC 4.3 L RBC 4.71 Hgb 14.9 Hct 43.0 MCV 91.2 MCH 31.5 MCHC 34.6 RDW 13.7 Plt Count 184 Neut % (Auto) 51.3 Lymph % (Auto) 33.4 [place] % (Auto) 9.6 Eos % (Auto) 5.2 H Baso % (Auto) 0.5 Neut # (Auto) 2200 Lymph # (Auto) 1400 [place] # (Auto) 400 Eos # (Auto) 200 Baso # (Auto) 0 D-Dimer Sodium 139 Potassium 3.9 Chloride 106 Carbon Dioxide 31 BUN 12 Creatinine 0.91 Estimated GFR > 60.0 BUN/Creatinine Ratio 13.2 Glucose 95 Hemoglobin A1c Calcium 9.1 Magnesium 2.0 Total Bilirubin 1.4 H Conjugated Bilirubin 0.0 Unconjugated Bilirubin 1.5 H AST 33 ALT 27 Alkaline Phosphatase 48 Troponin I Total Protein 6.3 Albumin 4.0 Globulin 2.3 Albumin/Globulin Ratio 1.7 Triglycerides 70 Cholesterol 153 LDL Cholesterol, Calc 89 HDL Cholesterol 50 Procalcitonin TSH SARS-CoV-2 (PCR) [facility] Medical History BPH (benign prostatic hyperplasia) Hyperlipidemia Surgical History (Updated 03/31/21 @ 23:21 by KAREN Alaniz) S/P ACL repair Family History (Updated 03/31/21 @ 23:22 by KAREN Alaniz) Father Myocardial infarction Mother Status cardiac pacemaker Social History household members: spouse Smoking Status: Never smoker alcohol intake: current Assessment & Plan Assessment & Plan narrative: Alvin Spears is placed into observation further evaluation and workup of chest pain Chest pain r/o ACS, acute, present on admission ? Echo pending ? Pharmacological stress test ? Start ASA 81 mg Hypertension ? Start low dose lisinopril * Baseline heart rate is too low for a beta jorden HLD ? Lipid panel ? Continue atorvastatin 80 mg po at bedtime Risk stratification ? A1c 5.5%, not diabetic VTE Prophylaxis: Lovenox 40 Code status: Full code as discussed with the patient who identifies his his surrogate and POA. I have utilized all available immediate resources to obtain, update, or review the patient's current medications Time Spent With Patient Critical Care time: I spent a total of [] minutes of critical care time on this patient's care today; this time is exclusive of procedural time. Quality VTE Deep Vein Thrombosis/Pulmonary Embolism Present on Admission: No MIPS - Admit I confirm the patient?s Advance Care Plan is present, Code status is documented, Surrogate decision maker is in patient?s record [If Yes, STOP here]: Yes
[2021-04-01 19:30] VITALS: BP 103/63; PULSE 60; RESP 18; TEMP 36.8; O2SAT 95
[2021-04-01] MEDS: ATORVASTATIN 20 MG TABLET 80 MG PO (20:22)
[2021-04-01 20:29] VITALS: BMI 26.4
[2021-04-02 02:11] VITALS: BP 100/55; PULSE 52; RESP 18; TEMP 36.5; O2SAT 95
[2021-04-02 06:25] LABS: Add Manual Diff / Slide Review NO; Basophils Absolute Auto 0 /uL (0-100); Basophils Percent Auto 0.3 % (0-2); Eosinophils Absolute Auto 200 /uL (0-450); Eosinophils Percent Auto 3.3 % (2-4); Hematocrit 44.9 % (41-53); Hemoglobin 15.4 g/dL (13.5-17.5); Lymphocytes Absolute Auto 1500 /uL (1100-4500); Lymphocytes Percent Auto 28.7 % (25-40); Mean Corpuscular HGB Conc 34.3 % (30-36); Mean Corpuscular Hemoglobin 31.4 PG (26-34); Mean Corpuscular Volume 91.4 fL (80-100); Monocytes Absolute Auto 500 /uL (0-900); Monocytes Percent Auto 10.4 % (3-14); Neutrophils Absolute Auto 2900 /uL (1500-7000); Neutrophils Percent Auto 57.3 % (50-75); Platelet Count 193 X10^3/uL (150-400); Red Blood Cell Count 4.91 X10^6/uL (4.5-5.9); Red Cell Distribution Width 13.8 % (11.6-14.8); White Blood Cell Count 5.1 X10^3/uL (4.5-11.0)
[2021-04-02 06:39] LABS: Alanine Aminotransferase 24 IU/L (<50); Albumin 4.1 g/dL (3.5-5.0); Albumin Globulin Ratio 1.5 (1.0-2.8); Alkaline Phosphatase 49 U/L (38-126); Aspartate Aminotransferase 32 IU/L (17-59); BUN Creatinine Ratio 15.7 (6-22); Bilirubin Total 1.4 mg/dL (0.2-1.3); Bilirubin Unconjugated 1.4 mg/dL (0.0-1.1); Blood Urea Nitrogen 17 mg/dL (9-20); Calcium 9.2 mg/dL (8.4-10.2); Carbon Dioxide 31 mmol/L (22-32); Chloride 105 mmol/L (98-107); Estimated Glomerular Filt Rate > 60.0 mL/min (>60); Globulin 2.8 g/dL (1.7-4.1); Glucose 105 mg/dL (80-110); HEMOLYSIS < 15 (0-50); Magnesium 2.1 mg/dL (1.6-2.3); Potassium 4.3 mmol/L (3.4-5.1); Sodium 139 mmol/L (137-145); Total Protein 6.9 g/dL (6.3-8.2)
[2021-04-02 08:36] VITALS: BP 108/53; PULSE 53; RESP 18; TEMP 36.7; O2SAT 97
[2021-04-02] MEDS: ENOXAPARIN 40 MG/0.4 ML SYRINGE SUBCUT (10:14)
[2021-04-02] MEDS: ASPIRIN EC 81 MG TABLET PO (10:14)
[2021-04-02 10:15] VITALS: BP 108/53
[2021-04-02] MEDS: lisinopriL 5 MG TABLET PO (10:15)
--- NOTE | 2021-04-02 11:52 | PC.NURSE ---
José Luis santoro
--- NOTE | 2021-04-02 11:52 | PC.NURSE ---
Addendum entered by Saida Cope R.N. 04/02/21 17:22: Pt recieved D/C orders SL discontinued. D/C instructions given w/understanding. Pt escorted by staff tpo waiting vehicle. D/C in stable condition, Addendum entered by Saida Cope R.N. 04/02/21 14:42: Back from stress test. Denies discomfort. Tele back in place. HL intact/patent. Call light w/in reach, pt calls appropriate for needs. Probable D/C this late afternoon, Call light w/in reach Continue w/plan of care. Original Note: Pt A/O, up ad tai in room Went for first portion of test Second portion of test later this afternoon Possible D/C afterward HL RAC intact/patent Denies any discomfort Call light w/in reach, pr calls apprpriately for needs.
--- NOTE | 2021-04-02 13:31 | PM.TREADMILL ---
Cardiac Stress Test Report Referral & Results Date Patient Seen: 04/02/21 Time Patient Seen: 13:31 Requesting provider: Melissa Lau Indication: chest pain Rest ECG: Sinus bradycardia Procedure Note: Standard Vishnu protocol, 9:02, 9.7 METS Good exercise capacity, JENNIFER -27% Normal hemodynamic response to exercise No chest pain or anginal symptoms 1-1.[address] depression in V4-V5 Rare PVC Impression: Equivocal exercise stress test Please note: Actual ECG tracings can be found in the PACS system.
--- NOTE | 2021-04-02 15:40 | P.PN_ITS ---
Subjective Subjective Interval history: The patient reports feeling well this morning. He is aware that he's pending a stress test evaluation. Denies any acute complaints or overnight events. Exam Vital Signs (past 8 hours): - 04/02/21 08:36 04/02/21 10:15 Temperature 98.0 F Pulse Rate 53 L Respiratory Rate 18 Blood Pressure 108/53 L 108/53 L Pulse Oximetry 97 Oxygen Delivery Method Room Air Oxygen Flow Rate 0 Const Other: Sitting up in bed comfortably upon my entering the room, in no apparent, acute distress Eyes Other: No scleral icterus appreciated Neck Other: No carotid bruits appreciated Resp Other: Lungs clear to auscultation bilaterally Cardio Other: RRR, S1 and S2 heart sounds normal, no extra heart sounds or murmurs appreciated, no peripheral edema GI Other: Soft, non-distended, non-tender, bowel sounds present Skin Other: No grossly abnormal skin lesions appreciated Extrem Other: Palpable and equally steady radial and dorsalis pedis pulses bilaterally Objective Labs Result Diagrams: 04/02/21 05:14 04/02/21 05:14 Labs: Laboratory Results - last 24 hr 04/02/21 04/02/21 05:14 05:14 WBC 5.1 RBC 4.91 Hgb 15.4 Hct 44.9 MCV 91.4 MCH 31.4 MCHC 34.3 RDW 13.8 Plt Count 193 Neut % (Auto) 57.3 Lymph % (Auto) 28.7 [place] % (Auto) 10.4 Eos % (Auto) 3.3 Baso % (Auto) 0.3 Neut # (Auto) 2900 Lymph # (Auto) 1500 [place] # (Auto) 500 Eos # (Auto) 200 Baso # (Auto) 0 Sodium 139 Potassium 4.3 Chloride 105 Carbon Dioxide 31 BUN 17 Creatinine 1.08 Estimated GFR > 60.0 BUN/Creatinine Ratio 15.7 Glucose 105 Calcium 9.2 Magnesium 2.1 Total Bilirubin 1.4 H Conjugated Bilirubin 0.0 Unconjugated Bilirubin 1.4 H AST 32 ALT 24 Alkaline Phosphatase 49 Total Protein 6.9 Albumin 4.1 Globulin 2.8 Albumin/Globulin Ratio 1.5 PFSH Medical History BPH (benign prostatic hyperplasia) Hyperlipidemia Surgical History (Updated 03/31/21 @ 23:21 by KAREN Alaniz) S/P ACL repair Family History (Updated 03/31/21 @ 23:22 by KAREN Alaniz) Father Myocardial infarction Mother Status cardiac pacemaker Social History household members: spouse Smoking Status: Never smoker alcohol intake: current Assessment & Plan Assessment & Plan narrative: Alvin Spears is placed into observation further evaluation and workup of chest pain 1. Unstable angina ?- Aspirin 81 mg daily, atorvastatin 80 mg daily on-board ?- Pending echocardiogram and myocardial perfusion study 2. Hypertension ?- Low-dose lisinopril 5 mg daily?on-board 3. Hyperlipidemia ?- Maximum intensity atorvastatin on-board VTE Prophylaxis: Lovenox 40 mg daily Code status: Full code Proxy: is surrogate I have utilized all available immediate resources to obtain, update, or review of the patient's current medications Time Spent With Patient Critical Care time: I spent a total of [] minutes of critical care time on this patient's care today; this time is exclusive of procedural time. Quality VTE Deep Vein Thrombosis/Pulmonary Embolism Present on Admission: No MIPS - Admit I confirm the patient?s Advance Care Plan is present, Code status is documented, Surrogate decision maker is in patient?s record [If Yes, STOP here]: Yes
--- NOTE | 2021-04-02 17:08 | P.DS_ITS ---
History of Present Illness History of Present Illness Chief complaint: Chest pain over weekend- referred by Narrative: Alvin Spears is a 70-year-old non-smoking male with only hyperlipidemia and BPH presented with a 1 day history of chest pain at rest.? He states that the chest pain started on Wednesday of last week and then reoccurred on Wednesday.? He states that it was not pressure but more pain that radiated down into his left arm.? He does state a family history of his father having of myocardial infarction.? He did state that he also became short of breath and would breathe hard in hopes that his pain would go away but it did not subside.? The patient states that he is very active, bicycles, hikes, and prior to the pandemic use to ski as well.? He denies diaphoresis, headache, nausea vomiting, dysuria, diarrhea or constipation.? He also denies any peripheral upper lower extremity n europathy.? He contacted his PCP's office and they advised him to present to the emergency department. Chest x-ray ordered in the emergency department indicated bibasilar opacities concerning for either infection or inflammation.? He was administered ASA 325 mg X 1 in the ED. Patient is afebrile, blood pressure 122/66 heart rate 57, respiratory rate 18, he weighs 93.5 kg with a BMI of 27.3.? His WBC is 4.3 he had a mildly elevated D-dimer of 284 however that is below the threshold for age, glucose was 130 with a hemoglobin A1c of 5.5 so he is not diabetic, troponins x3 are negative, procalcitonin is just been ordered and is pending. Discharge Providers Provider Date of admission: 03/31/21 17:42 Discharge Date: 04/02/21 Primary care physician: Alex May MD Discharge provider: Guilherme Clements MD Summary Hospital Course Discharge Diagnosis: Alvin Spears is placed into observation further evaluation and workup of chest pain, that is likely more atypical. 1. Atypical chest pain ?- Aspirin 81 mg daily, atorvastatin 80 mg daily on-board ?- Echocardiogram and myocardial perfusion study do not show evidence of obstructive, reversible coronary artery disease?- I spoke with the reading well logger, Dr. Reese, who confirmed that it was a negative stress test 2. Hypertension ?- Will continue outpatient follow-up with his PCP, per patient 3. Hyperlipidemia ?- Maximum intensity atorvastatin on-board Exam Vital Signs (past 8 hours): - 04/02/21 10:15 Blood Pressure 108/53 L Oxygen Delivery Method Room Air Oxygen Flow Rate 0 Objective Labs Result Diagrams: 04/02/21 05:14 04/02/21 05:14 Labs: Laboratory Results - last 24 hr 04/02/21 04/02/21 05:14 05:14 WBC 5.1 RBC 4.91 Hgb 15.4 Hct 44.9 MCV 91.4 MCH 31.4 MCHC 34.3 RDW 13.8 Plt Count 193 Neut % (Auto) 57.3 Lymph % (Auto) 28.7 Angelina % (Auto) 10.4 Eos % (Auto) 3.3 Baso % (Auto) 0.3 Neut # (Auto) 2900 Lymph # (Auto) 1500 Angelina # (Auto) 500 Eos # (Auto) 200 Baso # (Auto) 0 Sodium 139 Potassium 4.3 Chloride 105 Carbon Dioxide 31 BUN 17 Creatinine 1.08 Estimated GFR > 60.0 BUN/Creatinine Ratio 15.7 Glucose 105 Calcium 9.2 Magnesium 2.1 Total Bilirubin 1.4 H Conjugated Bilirubin 0.0 Unconjugated Bilirubin 1.4 H AST 32 ALT 24 Alkaline Phosphatase 49 Total Protein 6.9 Albumin 4.1 Globulin 2.8 Albumin/Globulin Ratio 1.5 PFSH Medical History BPH (benign prostatic hyperplasia) Hyperlipidemia Surgical History (Updated 03/31/21 @ 23:21 by KAREN Alaniz) S/P ACL repair Family History (Updated 03/31/21 @ 23:22 by KAREN Alaniz) Father Myocardial infarction Mother Status cardiac pacemaker Social History household members: spouse Smoking Status: Never smoker alcohol intake: current Discharge Assessment & Plan Assessment and Plan Assessment: Alvin Spears is placed into observation further evaluation and workup of chest pain, that is likely more atypical. 1. Atypical chest pain ?- Aspirin 81 mg daily, atorvastatin 80 mg daily on-board ?- Echocardiogram and myocardial perfusion study do not show evidence of obstructive, reversible coronary artery disease?- I spoke with the reading well logger, Dr. Reese, who confirmed that it was a negative stress test 2. Hypertension ?- Will continue outpatient follow-up with his PCP, per patient 3. Hyperlipidemia ?- Maximum intensity atorvastatin on-board Discharge Plan Discharge Plan Patient Disposition: Home Discharge orders & Medications Prescriptions: New aspirin 81 mg tablet,delayed release (DR/EC) 81 mg PO DAILY Qty: 90 4RF Continued tamsulosin [Flomax] 0.4 mg capsule 0.4 mg PO DAILY 0RF Changed atorvastatin 40 mg tablet 80 mg PO DAILY Qty: 180 4RF Follow up/Referrals: Alex May MD [Primary Care Provider] - Discharge Data Primary Care Provider: Alex May Attending Provider: Huy Figueroa VTE Deep Vein Thrombosis/Pulmonary Embolism Present on Admission: No
--- NOTE | 2021-04-02 19:43 | DI.NM.S_ITS ---
DATE OF SERVICE: 04/02/2021 PROCEDURE PERFORMED: Exercise treadmill stress and rest myocardial perfusion imaging with gating to assess ejection fraction and regional wall motion. ORDERING PROVIDER: Dr. Huy Figueroa. INDICATIONS: The patient is a 70-year-old male admitted with atypical chest discomfort. EXERCISE TREADMILL TESTING: The patient was able to exercise for a total of 9 minutes, 2 seconds on a standard Vishnu protocol, suggesting very good exercise capacity with an JENNIFER of -27%. He had a normal heart rate and blood pressure response to exercise, achieving a maximum heart rate of 159 BPM (106% of his predicted maximum). He had no chest discomfort or other anginal symptoms. His resting ECG shows sinus rhythm with nonspecific ST and T- wave abnormalities inferolaterally, which become slightly accentuated with stress, but remain nonspecific and upsloping. There were no significant arrhythmias. At 8 minutes of exercise at a heart rate of 157 BPM, 24.3 millicuries of technetium-99m Myoview was injected. He was imaged 10 minutes later using a gated SPECT acquisition protocol. Earlier in the day while at rest, he had been injected with 12.3 millicuries of technetium-99m Myoview and was imaged 45 minutes later, again using a gated SPECT acquisition protocol. FINDINGS: 1. Raw data: There is a marginal tracer uptake producing marginal image quality but there is no apparent motion artifact. The lung/heart ratio is normal at 0.19 with a normal TID ratio of 0.83. 2. Quantitated gated SPECT: Post-stress ejection fraction is estimated at 52% without any focal wall motion abnormality. Right ventricular free wall uptake is somewhat more prominent than usual and may be slightly hypokinetic. Resting ejection fraction is estimated at 50% although the image quality is quite poor. Resting end-diastolic volumes are increased at 153 mL. 3. Myocardial perfusion imaging: Immediate post-stress supine images are of marginal quality but show a mild perfusion defect throughout the inferior wall in a pattern that would be consistent with diaphragmatic attenuation, supported by its complete resolution on the prone images. There is also mildly reduced tracer activity in the mid to distal anterior septum that also resolves on prone imaging. The resting images show a similar perfusion pattern although with slightly more intense tracer activity globally. When normalized to the same level of intensity, there is no significant improvement in perfusion noted. IMPRESSION: 1. Probable normal myocardial perfusion study for ischemia but with marginal image quality. 2. Mild fixed inferior wall defect that resolves on the prone images, most consistent with diaphragmatic attenuation artifact. There is no compelling evidence for myocardial ischemia or previous myocardial infarction. 3. Low-normal left ventricular systolic function with mildly increased left ventricular volumes. In addition, right ventricular free wall tracer uptake appears to be increased with possible increased right ventricular size with mild hypokinesis, suggesting a possible right ventricular overload state. 4. Very good exercise capacity without angina or significant ECG changes of ischemia. Alvin Spears - MADHURI/shirley/anne doc#: [id number]/job#: [id number] dd: 04/02/2021 16:36:00 dt: 04/02/2021 19:14:00 DICTATING MD/COPIES TO: Jose Cruz Reese MD; Huy Figueroa M.D. COPIES MNE: TOAN;
== END 2021-04-02 17:24 | disposition home or self-care (01) ==
LOC: ED 15:52 → AC 17:43
PROVIDERS: Nurse Practitioner Family; Admitting Provider Internal Medicine; Emergency Provider Emergency Medicine; PCP Family Medicine; Visit Provider Internal Medicine
DX: R07.9 Chest pain, unspecified (principal); R42 Dizziness and giddiness; E78.5 Hyperlipidemia, unspecified; N40.0 Benign prostatic hyperplasia without lower urinary tract symptoms; I10 Essential (primary) hypertension; Z20.822 Contact with and (suspected) exposure to COVID-19
CPT/HCPCS: 36415; 71045; 78452; 80048; 80053; 80061; 80076; 82550; 83036; 83690; 83735; 84145; 84443; 84484; 85025; 85379; 87635; 93005; 93010; 93017; 93306; 96372; 99284; C9803; G0378; A9502; J1650

== ENCOUNTER → 2021-05-05 13:52 | Outpatient (CLI) | payer OTHER, SELFPAY ==
--- NOTE | 2021-05-23 15:28 | P.HOLT.S_ITS ---
Technical Support Manager Report Referral & Results Date Patient Seen: 05/05/21 Requesting provider: Alex May Indication: Palpitations Duration of monitoring (days): 12 Diary information: There were 5 patient triggered events and 3 patient diary entries Patient triggered events were variably associated with (within 45 seconds) sinus rhythm, simple PACs and simple PVCs Patient diary events were associated with sinus rhythm only Data: Minimum heart rate identified was 41 beats per minute at 06:16 on 05/06/2021 Maximum sinus heart rate was 160 beats per minute at 08:24 on 05/07/2021 Maximum overall heart rate was 190 beats per minute at 13:15 on 05/06/2021 during a run of SVT Less than 1% of identified beats were ventricular or supraventricular ectopic in origin, which would classify them as rare. There were 14 runs of SVT the fastest being 11 beat run at the above rate of 190, which was also the longest run. No pauses of 3 seconds or longer or atrial fibrillation identified on this study Impression: 11 +day phototypesetting equipment monitor demonstrating very rare very brief runs of SVT as well as occasional simple PACs and PVCs No clear correlation with patient reported symptoms any one particular dysrhythmia Clinical correlation suggested
== END ==
PROVIDERS: PCP Family Medicine; Referring Provider Family Medicine; Visit Provider Family Medicine
DX: R00.2 Palpitations (principal)
CPT/HCPCS: 93246; 93248

== ENCOUNTER → 2022-06-29 11:19 | Outpatient (CLI) | payer OTHER, SELFPAY ==
--- NOTE | 2022-06-29 | DI.RAD.S_ITS ---
PROCEDURE: XR CHEST 2V INDICATIONS: Acute cough TECHNIQUE: 2 views of the chest were acquired. COMPARISON: [facility], CR, XR CHEST 1V, 03/31/2021, 11:14. FINDINGS: Surgical changes and devices: None. Lungs and pleura: Lungs are clear. No pleural effusions or pneumothorax. Mediastinum: Mediastinal contours are normal. Heart size is normal. Bones and chest wall: No suspicious bony abnormalities. Soft tissues appear unremarkable. IMPRESSION: No acute cardiopulmonary process. Dictated by: Nii Clark M.D. on 06/29/2022 at 12:14 Approved by: Nii Clark M.D. on 06/29/2022 at 12:15
== END ==
PROVIDERS: PCP Internal Medicine; Referring Provider Internal Medicine; Visit Provider Internal Medicine
DX: R05.1 Acute cough (principal)
CPT/HCPCS: 71046

== ENCOUNTER 2023-05-26 07:28 | Day surgery (SDC) | payer OTHER, SELFPAY ==
[2023-05-26] VITALS (7 sets, daily range): BP systolic 84–115; BP diastolic 56–74; PULSE 51–70; RESP 10–18; TEMP 36.1–36.2; O2SAT 93–96
[2023-05-26] MEDS: LACTATED RINGERS 1,000 ML 42 ML IV (07:43)
--- NOTE | 2023-05-26 08:30 | P.HP_ITS ---
History of Present Illness History of Present Illness Date Patient Seen: 05/26/23 Chief complaint: Dx Colonoscopy Narrative: Ten year follow-up colonoscopy and family history of colon cancer in father. Sister also with history of colon polyps [facility] Medical History BPH (benign prostatic hyperplasia) Hyperlipidemia Surgical History (Updated 03/31/21 @ 23:21 by KAREN Alaniz) S/P ACL repair Family History (Updated 03/31/21 @ 23:22 by KAREN Alaniz) Father Myocardial infarction Mother Status cardiac pacemaker Social History household members: spouse Smoking Status: Never smoker alcohol intake: current Meds Home Medications and Allergies Home Medications Medication Instructions Recorded Confirmed Type tamsulosin 0.4 mg capsule (Flomax) 0.4 mg PO DAILY 12/02/20 05/26/23 History atorvastatin 40 mg tablet 80 mg (2 x 40 mg) PO DAILY #180 04/02/21 05/26/23 Rx tabs Allergies Allergy/AdvReac Type Severity Reaction Status Date / Time medication for skin CA Allergy Uncoded 05/26/23 07:47 Exam Vital Signs (past 8 hours): - 05/26/23 07:48 Temperature 97 F L Pulse Rate 63 Respiratory Rate 18 Blood Pressure 115/74 Pulse Oximetry 96 Oxygen Delivery Method Room Air Oxygen Delivery Method Room Air Narrative Exam Narrative: Oropharynx free of lesions Chest clear to auscultation percussion Cardiac exam reveals no S3 or murmur Assessment & Plan Assessment & Plan narrative: Family history of colon cancer and colon polyps need for follow-up colonoscopy. Risks, benefits, alternatives have been explained.
--- NOTE | 2023-05-26 08:31 | PM.OP.COLON ---
Operative Date/Time/Diagnoses Date of procedure: 05/26/23 Pre-op diagnosis: See indication and findings Procedure & Clinicians Study performed: Colonoscopy Indications: Family history of colon polyps and colon cancer in 2 first-degree relatives Surgeon: Bravo Swenson Procedure Notes Procedure in detail: After informed consent was obtained the patient was placed in left lateral decubitus position. The in colonoscope was introduced the rectum slowly advanced cecum. Preparation was good. On slow withdrawal mucosa was carefully examined. The scope was removed. The patient tolerated procedure well. Blood loss none Complications none Sedation mac Find 1. Significant diverticulosis in the left and sigmoid colon 2. Otherwise negative colonoscopy to cecum Given his new family history is was just follow-up colonoscopy in 5 years rather than 10.
== END 2023-05-26 09:49 | disposition home or self-care (01) ==
PROVIDERS: PCP Physician Assistant; Referring Provider Internal Medicine Gastroenterology; Visit Provider Internal Medicine Gastroenterology
PROC: 0DJD8ZZ Inspection of Lower Intestinal Tract, Via Natural or Artificial Opening Endoscopic (ICD-10-PCS; CPT 45378; principal; 2023-05-26 08:30)
DX: Z12.11 Encounter for screening for malignant neoplasm of colon (principal); Z83.719 Family history of colon polyps, unspecified
CPT/HCPCS: 45378; J2704

== ENCOUNTER → 2024-11-22 07:01 | Outpatient (CLI) | payer MEDICARE, SELFPAY ==
[2024-11-22 07:25] LABS: Add Manual Diff / Slide Review NO; Hematocrit 43.7 % (41-53); Hemoglobin 15.0 g/dL (13.5-17.5); Lymphocytes Absolute Auto 1700 /uL (1100-4500); Mean Corpuscular HGB Conc 34.2 % (30-36); Mean Corpuscular Hemoglobin 31.7 PG (26-34); Mean Corpuscular Volume 92.6 fL (80-100); Platelet Count 189 X10^3/uL (150-400)
[2024-11-22 07:45] LABS: Alanine Aminotransferase 25 IU/L (<50); Albumin 4.3 g/dL (3.5-5.0); Albumin Globulin Ratio 1.5 (1.0-2.8); Blood Urea Nitrogen 22 mg/dL (9-20); Calcium 9.5 mg/dL (8.4-10.2); Carbon Dioxide 26 mmol/L (22-32); Chloride 103 mmol/L (98-107); Cholesterol 168 mg/dL (140-199); Estimated Glomerular Filt Rate > 60 mL/min (>60); Globulin 2.8 g/dL (1.7-4.1); Glucose 93 mg/dL (70-99); HEMOLYSIS < 15 (0-50); Potassium 4.5 mmol/L (3.4-5.1); Sodium 138 mmol/L (137-145); Total Protein 7.1 g/dL (6.3-8.2); Triglycerides 61 mg/dL (35-150)
[2024-11-22 07:46] LABS: Alkaline Phosphatase 58 U/L (38-126); HDL Cholesterol 74 mg/dL (40-60)
[2024-11-22 08:15] LABS: TSH w/ Reflex to FT4 3.16 uIU/mL (0.47-4.68)
== END ==
PROVIDERS: PCP Family Medicine; Referring Provider Family Medicine; Visit Provider Family Medicine
DX: E78.2 Mixed hyperlipidemia (principal); Z12.5 Encounter for screening for malignant neoplasm of prostate; N40.0 Benign prostatic hyperplasia without lower urinary tract symptoms; R00.2 Palpitations
CPT/HCPCS: 36415; 80053; 80061; 84443; 85025; G0103

== ENCOUNTER → 2025-01-02 09:13 | Outpatient (CLI) | payer MEDICARE, SELFPAY ==
--- NOTE | 2025-01-02 09:14 | DI.RAD.S_ITS ---
PROCEDURE: XR CHEST 2V INDICATIONS: Worsening cough rule out pneumonia TECHNIQUE: 2 views of the chest were acquired. COMPARISON: None. FINDINGS: Surgical changes and devices: None. Lungs and pleura: Lungs are clear. No pleural effusions or pneumothorax. Mediastinum: Mediastinal contours are normal. Heart size is normal. Bones and chest wall: No suspicious bony abnormalities. Soft tissues appear unremarkable. IMPRESSION: No acute cardiopulmonary pathology. Dictated by: Nii Clark M.D. on 01/02/2025 at 9:42 Approved by: Nii Clark M.D. on 01/02/2025 at 9:43
== END ==
PROVIDERS: PCP Family Medicine; Referring Provider Chiropractor; Visit Provider Chiropractor
DX: R05.1 Acute cough (principal)
CPT/HCPCS: 71046